=== PATIENT | male | born 1970 | race Two or more races ===

== ENCOUNTER → 2021-03-06 | Emergency (ER) | payer SELFPAY ==
[~2021-03-06] VITALS: Ht 177.8 cm; Wt 95.3 kg
[2021-03-06 10:50] VITALS: BP 139/89
[2021-03-06 12:05] LABS: Basophils # (auto) 0.1 10 ^3/uL (0-0.2); Basophils % (auto) 1.3 % (0.0-2.0); Eosinophils # (auto) 0.3 10 ^3/uL (0-0.8); Hematocrit 47.5 % (41.0-53.0); Hemoglobin 15.6 g/dL (13.5-17.5); Lymphocytes # (auto) 1.9 10 ^3/uL (0.4-5.4); Lymphocytes % (auto) 18.7 % (10.0-50.0); Mean Corpuscular Hgb Conc. 32.9 g/dL (32.0-36.0); Mean Corpuscular Volume 84.9 fL (80.0-100.0); Monocytes # (auto) 0.7 10 ^3/uL (0-1.3); Monocytes % (auto) 7.3 % (0.0-12.0); Neutrophils # (auto) 6.9 10 ^3/uL (1.6-8.6); Neutrophils % (auto) 69.7 % (37.0-80.0); Nucleated Red Blood Cells % 0.2 %; Red Blood Cells 5.59 10^6/uL (4.5-5.90); Red Cell Distribution Width 15.5 % (11.8-14.3)
[2021-03-06 12:24] LABS: Albumin 3.2 g/dL (3.4-5.0); Anion Gap 3 (5-15); Blood Urea Nitrogen 14 mg/dL (7-18); Calcium 8.7 mg/dL (8.5-10.1); Carbon Dioxide 28 mmol/L (21-32); Chloride 109 mmol/L (98-107); Glucose 94 mg/dL (74-106); Potassium 4.4 mmol/L (3.5-5.1); Sodium 140 mmol/L (136-145)
[2021-03-06 12:31] LABS: Alanine Aminotransferase 49 U/L (16-61); Alkaline Phosphatase 82 U/L (45-117); Aspartate Aminotransferase 26 U/L (15-37); BUN/Creatinine Ratio 7.7; Bilirubin, Total 0.8 mg/dL (0.2-1.0); GFR African American 51 mL/min; GFR Non-African American 42 mL/min
== END | disposition home or self-care (01) ==
LOC: ER 10:38
DX: R06.02 Shortness of breath (principal); I10 Essential (primary) hypertension; Z20.822 Contact with and (suspected) exposure to COVID-19
CPT/HCPCS: 36415; 71045; 80053; 84484; 85025; 87426

== ENCOUNTER 2021-03-08 16:07 | Emergency (ER) | payer SELFPAY ==
[~2021-03-08] VITALS: Ht 177.8 cm; Wt 95.3 kg
[2021-03-08 17:23] VITALS: BP 145/101
[2021-03-08] MEDS ORDERED: LORazepam 0.5 MG TAB PO ONE (18:45)
== END 2021-03-08 18:54 | disposition home or self-care (01) ==
LOC: ER 16:09
DX: F41.9 Anxiety disorder, unspecified (principal); I10 Essential (primary) hypertension; J45.909 Unspecified asthma, uncomplicated
CPT/HCPCS: 71045